=== PATIENT | male | born 1960 | race Caucasian/White ===

== ENCOUNTER 2022-06-19 11:04 | Emergency (ER) | payer BC, SELFPAY ==
[2022-06-19 11:11] VITALS: BP 143/82; PULSE 81; RESP 18; TEMP 36.8; O2SAT 96
--- NOTE | 2022-06-19 11:27 | CT_ITS ---
WS: [id number] CT HEAD TECHNIQUE: Noncontrast CT of the head obtained from the skullbase to the vertex. CLINICAL INFORMATION: syncope; head injury/maurer COMPARISON: None. DLP: 1119.[address] scans at [facility] use at least one of these dose optimization techniques: automated e xposure control; mA and/or kV adjustment per patient size (includes targeted exams where dose is matc hed to clinical indication); or iterative reconstruction. FINDINGS: No evidence of intracranial hemorrhage or mass effect. Ventricular system and basal cisterns are beard nt. Mild small vessel changes with mild parenchymal volume loss. No extra-axial fluid collections. No evidence of mass or mass effect. Paranasal sinuses and mastoid air cells are well aerated. Mild mucosal thickening ethmoid air cells . Normal visualized soft tissues. CT/CT head wo con* [id number] IMPRESSION: 1. No evidence of intracranial hemorrhage or mass effect. 2. No acute intracranial findings.
--- NOTE | 2022-06-19 11:27 | XRR_ITS ---
PROCEDURE INFORMATION: Exam: XR Chest Exam date and time: 06/19/2022 11:38 AM Age: 62 years old Clinical indication: Injury or trauma; Fall; Other: Blunt trauma to lower leg; Additional info: Syncope TECHNIQUE: Imaging protocol: Radiologic exam of the chest. Views: 1 view. COMPARISON: No relevant prior studies available. FINDINGS: Lungs: Small indistinct linear opacities at the left lung base possibly secondary to subsegmental atelectasis but difficult to adequately assessed on this single-view chest Remaining lung hinds are clear. Pleural spaces: Unremarkable. No pleural effusion. No pneumothorax. Heart/Mediastinum: Unremarkable. No cardiomegaly. Bones/joints: Unremarkable for age. XR/XR chest 1V portable [id number] IMPRESSION: Questionable left basilar subsegmental atelectasis. Continued follow-up advised.
--- NOTE | 2022-06-19 11:29 | XRR_ITS ---
PROCEDURE INFORMATION: Exam: XR Left Tibia and Fibula Exam date and time: 06/19/2022 11:38 AM Age: 62 years old Clinical indication: Pain and injury or trauma; Fall; Blunt trauma; Lower leg; Left; Additional info: Pain/fall TECHNIQUE: Imaging protocol: Radiologic exam of the Left tibia and fibula. Views: 2 views. COMPARISON: No relevant prior studies available. FINDINGS: Bones/joints: There is mild deformity involving the mid shaft of the tibia presumed secondary to old healed fracture. There is no acute fracture detected. Osseous structures otherwise unremarkable. Soft tissues: Unremarkable. XR/XR tibia fibula LT 2V [id number] IMPRESSION: Mild deformity mid shaft of the tibia presumed secondary to old healed fracture. Please confirmed with history.
--- NOTE | 2022-06-19 11:29 | CT_ITS ---
WS: [id number] CT CERVICAL TRAUMA TECHNIQUE: Noncontrast CT of the cervical spine with coronal and sagittal reformatted images. CLINICAL INFORMATION: pain; injury from fall COMPARISON: None. DLP: 199.[address] scans at [facility] use at least one of these dose optimization techniques: automated e xposure control; mA and/or kV adjustment per patient size (includes targeted exams where dose is matc hed to clinical indication); or iterative reconstruction. FINDINGS: Straightening of the normal cervical lordosis with mild cervical curve. Mild spondylitic changes.. No rmal craniocervical junction. Normal C1-C2 articulation. Dens is normal in appearance. Normal occipit al condyles. No high-grade spinal canal narrowing. Normal C1 ring. No evidence of acute fracture or d islocation. Normal prevertebral soft tissues. Mastoids air cells are well aerated. CT/CT cervical spin wo con* [id number] IMPRESSION: No evidence of acute fracture or dislocation.
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
--- NOTE | 2022-06-19 11:33 | ECG_ITS ---
[facility] Test Date: 2022-06-19 Pat Name: Derik Contreras Department: Room: Gender: Male Manager Industrial: : 1960 Requested By: Sean Wilkins Order Number: [id number] Karlee MD: Rafy Bellamy M.D. Measurements Intervals [place] Rate: 77 P: 57 VT: 218 QRS: 67 QRSD: 92 T: 53 QT: 377 QTc: 429 Interpretive Statements SINUS RHYTHM WITH FIRST DEGREE AV BLOCK POSSIBLE RIGHT VENTRICULAR CONDUCTION DELAY [RSR (QR) IN V1/V2] No previous ECG available for comparison Electronically Signed On 06-20-2022 13:49:44 BRICK KILN WORKER by Rafy Bellamy M.D. [email or web address]
[2022-06-19 12:21] LABS: Basophils # 0.1 10^3/uL (0.0-0.1); Basophils % 1.1 %; Eosinophils # 0.5 10^3/uL (0.0-0.8); Eosinophils % 7.5 %; Hematocrit 44.6 % (42.0-52.0); Hemoglobin 15.6 g/dL (11.7-16.6); Lymphocytes # 1.7 10^3/uL (0.8-4.8); Lymphocytes % 26.5 %; Mean Corpuscular Hemoglobin 29.9 pg (28.0-34.0); Mean Corpuscular Volume 85.6 fl (80-94); Mean Platelet Volume 9.3 fL (7.4-10.4); Monocytes # 0.6 10^3/uL (0.2-0.9); Monocytes % 8.5 %; Neutrophils % 56.2 %; Nucleated Red Blood Cells % 0 %; Platelet Count 213 10^3/cmm (130-400); Red Blood Count 5.21 10^6/uL (4.1-5.3); Red Cell Distribution Width 11.9 % (12.1-15.1); White Blood Count 6.6 10^3/uL (4.0-10.0)
[2022-06-19] MEDS: sodium chloride 0.9% 500 ML IV (12:21)
[2022-06-19 12:29] VITALS: BP 119/71; PULSE 73; RESP 16; O2SAT 96
[2022-06-19 12:40] LABS: Troponin(5th) Baseline 6 ng/L (0-15)
[2022-06-19 12:41] LABS: Anion Gap 14.3 (5-19); Blood Urea Nitrogen 9 mg/dL (8-23); Calcium 9.7 mg/dL (8.5-10.5); Carbon Dioxide 26 mmol/L (22-29); Chloride 102 mmol/L (98-107); Glomerular Filtration Rate 98.6 mL/min (90-130); Glucose 95 mg/dL (65-115); Osmolality Calculated 284 mOsm/kg (285-295); Potassium 4.3 mmol/L (3.5-5.1); Sodium 138 mmol/L (136-145)
[2022-06-19 13:15] VITALS: BP 103/77; PULSE 66; RESP 16; O2SAT 94
[2022-06-19 13:39] VITALS: BP 103/77; PULSE 66; RESP 16; O2SAT 94
== END 2022-06-19 13:38 | disposition home or self-care (01) ==
PROVIDERS: Emergency Provider Family Medicine
DX: I95.1 Orthostatic hypotension (principal)
CPT/HCPCS: 36415; 70450; 71045; 72125; 73590; 80048; 83735; 84484; 85025; 93005; 99285; J7040